=== PATIENT | female | born 1980 | race Caucasian/White ===

== ENCOUNTER → 2022-04-01 11:17 | Outpatient (CLI) | payer OTHER, SELFPAY ==
--- NOTE | ~2022-04-01 | MM_ITS ---
EXAMINATION: MM screening deb BI w arden HISTORY: Screening mammogram TECHNIQUE: Craniocaudal and mediolateral oblique 3-D tomosynthesis images were obtained and synthetic 2-D images were generated. CAD analysis was submitted and interpreted. COMPARISON: No prior mammogram is available for comparison at this institution. BREAST PARENCHYMAL COMPOSITION: The breasts are extremely dense, which lowers the sensitivity of mamm ography. FINDINGS: There is asymmetry in the upper right breast on MLO view. Diagnostic right mammogram is rec ommended, with ultrasound if required. Otherwise no suspicious mass, architectural distortion, malignant calcification, skin thickening or r etraction is detected. IMPRESSION: 1. Asymmetry in the upper right breast on MLO screening view 2. Diagnostic right mammogram is recommended, with ultrasound if required BI-RADS Category 0: Incomplete: Needs additional imaging evaluation. Reviewed, dictated and finalized at location A. SPORT INSTRUCTOR
== END ==
PROVIDERS: PCP Internal Medicine; Visit Provider Nurse Practitioner
DX: Z12.31 Encounter for screening mammogram for malignant neoplasm of breast (principal); R92.8 Other abnormal and inconclusive findings on diagnostic imaging of breast
CPT/HCPCS: 77063; 77067

== ENCOUNTER → 2022-04-08 08:17 | Outpatient (CLI) | payer OTHER, SELFPAY ==
--- NOTE | ~2022-04-08 | MMUS_ITS ---
EXAMINATION: MM diagnostic deb RT w arden, US breast RT limited HISTORY: Right breast asymmetry on screening mammogram TECHNIQUE: Additional 3-D tomosynthesis images of the right breast were performed and synthetic 2-D i mages were generated. CAD analysis was submitted and interpreted. High resolution limited right breas t ultrasound was performed. COMPARISON: 04/01/2022 FINDINGS: MAMMOGRAPHIC FINDINGS: The right breast asymmetry on the mediolateral oblique view somewhat disperses with spot compression. No suspicious mass, calcification, or architectural distortion are identified. ULTRASOUND: There is a 6 mm x 4 mm oval, circumscribed, parallel, hypoechoic mass with no posterior features or i nternal vascularity at the 12:00 location 3 cm from the nipple. IMPRESSION: 1. Probably benign right breast asymmetry and mass. 2. Recommend 6 month follow-up right diagnostic mammogram and ultrasound. BI-RADS category 3, probably benign findings. Reviewed, dictated and finalized at location A. NGUAL CUSTOMER SERVICE SPECIALIST IMPRESSION: 1. Probably benign right breast asymmetry and mass. 2. Recommend 6 month follow-up right diagnostic mammogram and ultrasound. BI-RADS category 3, probably benign findings.
== END ==
PROVIDERS: PCP Internal Medicine; Visit Provider Obstetrics & Gynecology Gynecology
DX: R92.8 Other abnormal and inconclusive findings on diagnostic imaging of breast (principal)
CPT/HCPCS: 76642; 77061; 77065; G0279

== ENCOUNTER → 2022-09-16 08:20 | Outpatient (CLI) | payer BC, SELFPAY ==
--- NOTE | ~2022-09-16 | MMUS_ITS ---
EXAMINATION: MM diagnostic deb RT w arden, US breast RT complete HISTORY: Short-term follow-up of probable benign right breast asymmetry and mass reported on 3 diagnostic right mammogram and limited right breast ultrasound examinations TECHNIQUE: ML, MLO and CC full field and spot MLO and ML 3-D tomosynthesis images of the right breast were performed and synthetic 2-D images were generated. CAD analysis was submitted and interpreted. High resolution complete breast ultrasound examination including all 4 quadrants and subareolar area was performed. COMPARISON: 04/08/2022 diagnostic right mammogram and limited right breast ultrasound 04/01/2022 bilateral screening mammogram BREAST PARENCHYMAL COMPOSITION: The breasts are extremely dense, which lowers the sensitivity of mamm ography. FINDINGS: MAMMOGRAPHIC FINDINGS: No suspicious mass or architectural distortion, malignant calcification, skin thickening or retractio n or significant new or developing density is detected. ULTRASOUND: No suspicious solid lesion or mass lesion is noted. 12:00 3 cm from nipple: 4.7 x 6.4 mm sonolucency with through transmission posterior enhancement cons istent with cyst, not significantly changed since 04/08/2022. 11:00 2 cm from nipple: 2.6 mm cyst IMPRESSION: 1. Benign findings 2. Routine annual mammographic screening is recommended BI-RADS Category 2: Benign finding(s). Reviewed, dictated and finalized at location A. IMPRESSION: 1. Benign findings 2. Routine annual mammographic screening is recommended BI-RADS Category 2: Benign finding(s).
== END ==
PROVIDERS: PCP Obstetrics & Gynecology Gynecology; Visit Provider Obstetrics & Gynecology Gynecology
DX: R92.8 Other abnormal and inconclusive findings on diagnostic imaging of breast (principal)
CPT/HCPCS: 76641; 77061; 77065; G0279

== ENCOUNTER 2023-06-02 13:46 | Outpatient (CLI) | payer BC, SELFPAY ==
--- NOTE | ~2023-06-02 | MM_ITS ---
EXAMINATION: MM screening deb BI w arden HISTORY: Screening mammogram TECHNIQUE: Craniocaudal and mediolateral oblique 3-D tomosynthesis images were obtained and synthetic 2-D images were generated. Bilateral rotated lateral CC views. CAD analysis was submitted and interp reted. COMPARISON: 09/16/2022 diagnostic right mammogram and complete right breast ultrasound examination 04/08/2022 diagnostic right mammogram and limited right breast ultrasound examination 04/01/2022 bilateral screening mammogram BREAST PARENCHYMAL COMPOSITION: The breasts are extremely dense, which lowers the sensitivity of mamm ography. FINDINGS: There is no evidence of suspicious mass, calcification, or architectural distortion to sugg est malignancy in either breast. There has been no suspicious interval change. IMPRESSION: 1. No mammographic evidence of malignancy. 2. Recommend routine screening mammography in one year. BI-RADS Category 1: Negative Reviewed, dictated and finalized at location A.
== END 2023-06-02 13:47 ==
LOC: MICIMG 13:48
PROVIDERS: PCP Nurse Practitioner; Visit Provider Nurse Practitioner
DX: Z12.31 Encounter for screening mammogram for malignant neoplasm of breast (principal)
CPT/HCPCS: 77063; 77067

== ENCOUNTER 2024-04-25 08:45 | Outpatient (CLI) | payer BC, SELFPAY ==
--- NOTE | ~2024-04-25 | XR_ITS ---
Clinical Indication: Cough PA and lateral views of the chest: Comparison: None Findings: The lungs are clear, without evidence of focal consolidation or pleural effusion. Cardiome diastinal silhouette is within normal limits. Bones and soft tissues are unremarkable. Impression: Normal chest. Reviewed, dictated and finalized at location . ETING LEAD Impression: Normal chest.
== END 2024-04-25 08:46 | disposition home or self-care (01) ==
DX: R05.9 Cough, unspecified (principal)
CPT/HCPCS: 71046

== ENCOUNTER 2024-08-23 13:41 | Outpatient (CLI) | payer BC, SELFPAY ==
--- NOTE | ~2024-08-23 | MM_ITS ---
EXAMINATION: MM screening dbe BI w arden HISTORY: Screening TECHNIQUE: Craniocaudal and mediolateral oblique 3-D tomosynthesis images were obtained and synthetic 2-D images were generated. CAD analysis was submitted and interpreted. COMPARISON: 06/02/2023 and 04/01/2022 BREAST PARENCHYMAL COMPOSITION: The breasts are heterogeneously dense, which may obscure small masses . FINDINGS: There is no evidence of suspicious mass, calcification, or architectural distortion to sugg est malignancy in either breast. There has been no suspicious interval change. IMPRESSION: 1. No mammographic evidence of malignancy. 2. Recommend routine screening mammography in one year. BI-RADS Category 1: Negative Reviewed, dictated and finalized at location B.
== END 2024-08-23 13:42 | disposition home or self-care (01) ==
LOC: MICIMG 13:42
PROVIDERS: PCP Obstetrics & Gynecology Gynecology; Visit Provider Obstetrics & Gynecology Gynecology
DX: Z12.31 Encounter for screening mammogram for malignant neoplasm of breast (principal)
CPT/HCPCS: 77063; 77067